=== PATIENT | male | born 1965 | race Caucasian/White ===

== ENCOUNTER 2025-01-19 08:16 | Day surgery (SDC) | payer OTHER, SELFPAY ==
[2025-01-19 07:32] LABS: Glucose - Point of Care 114 mg/dl (70-99)
== END 2025-01-19 08:17 | disposition home or self-care (01) ==
LOC: GI 08:16
PROVIDERS: ATTENDING PHYSICIAN Internal Medicine
DX: Z12.11 Encounter for screening for malignant neoplasm of colon (principal); K64.8 Other hemorrhoids; K57.30 Diverticulosis of large intestine without perforation or abscess without bleeding; K62.1 Rectal polyp; D12.3 Benign neoplasm of transverse colon; Z86.0100 Personal history of colon polyps, unspecified
CPT/HCPCS: 45385; 45380; 82962; 88305